=== PATIENT | female | born 1985 | race Asian ===

== ENCOUNTER 2016-06-20 14:30 | Inpatient (IN) | payer MEDICAID ==
[~2016-06-20] VITALS: Ht 167.6 cm; Wt 61.3 kg
[2016-06-20 16:16] LABS: PLATELET COUNT 178 x10^3mcL (130-400); RED CELL DISTRIBUTION WIDTH 13.6 % (11.5-14.5)
[2016-06-20 16:28] LABS: CALCIUM 8.6 mg/dL (8.5-10.1); CARBON DIOXIDE 28.3 mmol/L (21-32); CHLORIDE SERUM 101 mmol/L (98-107); CREATININE SERUM 0.5 mg/dL (0.6-1.0); GFR1 > 60 mL/min; GLUCOSE SERUM 86 mg/dL (74-106); POTASSIUM SERUM 3.9 mmol/L (3.5-5.1); SODIUM SERUM 136 mmol/L (136-145)
[2016-06-20 16:39] LABS: ALBUMIN 3.5 g/dL (3.4-5.0); ALKALINE PHOSPHATASE 64 U/L (46-116); ALT/SGPT 41 U/L (14-59); AST/SGOT 19 U/L (15-37); BILIRUBIN TOTAL 1.1 mg/dL (0.20-1.00); C REACTIVE PROTEIN 0.5 mg/dL (<=0.9); TOTAL PROTEIN, SERUM 6.6 g/dL (6.4-8.2)
[2016-06-20 16:40] LABS: T3 TOTAL 1.6 ng/mL
[2016-06-20 16:43] LABS: FREE T4 1.21 ng/dL (0.76-1.46); FREE THYROXINE INDEX 3.8 ug/dL (1.4-4.5); T4(THYROXINE) 10.6 ug/dL (4.7-13.3)
[2016-06-20 16:46] LABS: CK-MB < 0.5 ng/mL (0-3.6); CREATINE KINASE 16 U/L (26-192)
[2016-06-20 16:55] LABS: BAND NEUTROPHIL 14 % (0-10); BASOPHIL 0 % (0-2); METAMYELOCTE 2 % (0-2)
[2016-06-20 16:57] LABS: MYELOCYTE 1 % (0-2); SEGMENTED NEUTROPHILS 74 % (37-75)
[2016-06-20 16:59] LABS: PLATELET MORPHOLOGY PLATELETS NORMAL
[2016-06-20 17:02] LABS: ERYTHROCYTE SED RATE 29 mm/hr (0-20)
[2016-06-20 17:17] LABS: microscopic required? NO
[2016-06-20 17:23] LABS: urine erythrocyte NEGATIVE (NEGATIVE)
[2016-06-20 19:18] LABS: MAGNESIUM 1.7 mg/dL (1.8-2.4)
[2016-06-20 19:32] LABS: CHOLESTEROL/HDL RATIO 2.7
[2016-06-20 19:46] LABS: AMPHETAMINE QUAL UR NONE DETECTED (NEG <=1000)
[2016-06-20 21:59] VITALS: BP 91/62
[2016-06-20] MEDS ORDERED: ZOFRAN8 MG PO (22:41)
[2016-06-20] MEDS ORDERED: APAP/HYDROCODON1 T15 PO (22:43)
[2016-06-20] MEDS ORDERED: LORAZEPAM1 MG PO (22:45)
[2016-06-20] MEDS ORDERED: PEPCID40 MG PO (22:47)
[2016-06-21 05:30] VITALS: BP 90/57
[2016-06-21 06:07] LABS: PLATELET COUNT 130 x10^3mcL (130-400); RED CELL DISTRIBUTION WIDTH 13.8 % (11.5-14.5)
[2016-06-21 06:18] LABS: CALCIUM 8.1 mg/dL (8.5-10.1); CARBON DIOXIDE 25.9 mmol/L (21-32); CHLORIDE SERUM 103 mmol/L (98-107); CREATININE SERUM 0.5 mg/dL (0.6-1.0); GFR1 > 60 mL/min; GLUCOSE SERUM 83 mg/dL (74-106); MAGNESIUM 1.9 mg/dL (1.8-2.4); PHOSPHOROUS 3.2 mg/dL (2.5-4.9); POTASSIUM SERUM 3.8 mmol/L (3.5-5.1); SODIUM SERUM 138 mmol/L (136-145)
[2016-06-21 09:46] VITALS: BP 95/65
[2016-06-21 10:43] LABS: BAND NEUTROPHIL 12 % (0-10); BASOPHIL 0 % (0-2); MONOCYTE 1 % (0-7); MYELOCYTE 1 % (0-2); SEGMENTED NEUTROPHILS 78 % (37-75)
[2016-06-21 10:44] LABS: PLATELET MORPHOLOGY PLATELETS DECREASED; rbc morphology (normal/abnorm) ABNORMAL (NORMAL)
== END 2016-06-21 11:22 | disposition left against medical advice (07) | DRG 663 ==
LOC: ED 14:30 → DU 18:33
PROVIDERS: Specialist; ADMIT Family Medicine
DX: D72.829 Elevated white blood cell count, unspecified (principal); N17.0 Acute kidney failure with tubular necrosis; C50.912 Malignant neoplasm of unspecified site of left female breast; R11.2 Nausea with vomiting, unspecified; E83.42 Hypomagnesemia; E78.1 Pure hyperglyceridemia; E80.6 Other disorders of bilirubin metabolism; T45.1X5A Adverse effect of antineoplastic and immunosuppressive drugs, initial encounter; Y92.238 Other place in hospital as the place of occurrence of the external cause; Z68.21 Body mass index [BMI] 21.0-21.9, adult
CPT/HCPCS: 80307; 83880; 84439; G0480; J2405; J2543; J3475; J7030; Q0092; Q0162

== ENCOUNTER 2018-04-28 09:43 | Emergency (ER) | payer MEDICAID ==
[~2018-04-28] VITALS: Ht 165.1 cm; Wt 66.2 kg
[~2018-04-28 09:43] MED LIST: APAP/HYDROCODON1 T15 PO; LORAZEPAM1 MG PO; PEPCID40 MG PO; ZOFRAN8 MG PO
[2018-04-28 10:06] VITALS: BP 125/82; Ht 165.1 cm; Wt 66.2 kg
[2018-04-28 11:20] LABS: microscopic required? YES; urine erythrocyte NEGATIVE (NEGATIVE)
== END 2018-04-28 11:44 | disposition home or self-care (01) ==
LOC: ED 09:43
PROVIDERS: Emergency Medicine
DX: N39.0 Urinary tract infection, site not specified (principal); Z85.3 Personal history of malignant neoplasm of breast

== ENCOUNTER 2018-12-24 08:38 | Emergency (ER) | payer MEDICAID ==
[~2018-12-24] VITALS: Ht 162.6 cm; Wt 65.8 kg
[2018-12-24 09:12] VITALS: Ht 162.6 cm; Wt 65.8 kg
[2018-12-24 10:51] VITALS: BP 104/70
== END 2018-12-24 10:51 | disposition home or self-care (01) ==
LOC: ED 08:38
DX: J03.90 Acute tonsillitis, unspecified (principal); Z98.890 Other specified postprocedural states; Z85.3 Personal history of malignant neoplasm of breast
CPT/HCPCS: J0696

== ENCOUNTER 2019-03-27 22:17 | Emergency (ER) | payer MEDICAID ==
[~2019-03-27] VITALS: Ht 165.1 cm; Wt 64.9 kg
[2019-03-27 22:46] VITALS: BP 104/62; Ht 165.1 cm; Wt 64.9 kg
== END 2019-03-28 00:19 | disposition home or self-care (01) ==
LOC: ED 22:17
DX: J03.90 Acute tonsillitis, unspecified (principal); Z98.890 Other specified postprocedural states; Z85.3 Personal history of malignant neoplasm of breast
CPT/HCPCS: J0696; J1100

== ENCOUNTER 2020-02-17 15:34 | Emergency (ER) | payer MEDICAID, SELFPAY ==
[~2020-02-17] VITALS: Ht 165.1 cm; Wt 64.4 kg
[2020-02-17 16:00] VITALS: BP 110/81; Ht 165.1 cm; Wt 64.4 kg
== END 2020-02-17 18:06 | disposition home or self-care (01) ==
LOC: ED 15:34
DX: U07.1 COVID-19 (principal); Z98.890 Other specified postprocedural states; Z90.12 Acquired absence of left breast and nipple
CPT/HCPCS: U0003